=== PATIENT | male | born 1965 | race Caucasian/White ===

== ENCOUNTER 2017-02-18 15:49 | Emergency (ER) | payer SELFPAY ==
[2017-02-18 15:57] VITALS: TEMP 98.3
[2017-02-18] MEDS ORDERED: LIDOCAINE VIS-MYLANTA 30 ML UD PO ONE (16:09)
[2017-02-18] MEDS ORDERED: ASPIRIN TABLET 325 MG TAB PO ONE (16:09)
--- NOTE | 2017-02-18 16:24 | RAD ---
EXAM DESCRIPTION: Chest,1 View CLINICAL HISTORY: 51 years Male, chest pain COMPARISON: None. TECHNIQUE: AP portable chest. FINDINGS: The lungs are clear. There is no infiltrate or effusion. The heart is normal size. IMPRESSION: Normal. Electronically signed by: Tello Caruso MD 02/18/2017 4:23 PM CDT
[2017-02-18] MEDS ORDERED: NITROGLYCERIN 0.4 MG 25 EA TAB SL ONE ×4 (16:32→17:02)
[2017-02-18] MEDS ORDERED: CLOPIDOGREL 75 MG TAB PO ONE (17:04)
[2017-02-18] MEDS ORDERED: ENOXAPARIN SODIUM 100 MG/ML SYG SUBCU ONE (17:06)
--- NOTE | 2017-02-18 17:56 | ED.PDOC ---
History of Present Illness - General Chief Complaint: Chest Pain/MT Stated Complaint: chest tightness,shortness of breath Time Seen by Provider: 02/18/17 16:00 Source: patient Exam Limitations: no limitations - History of Present Illness Initial Comments: the patient is a 51-year-old male presenting to the emergency room secondary to chest discomfort starting 1 to 1-1/2 hours prior to arrival. the patient is not really describing it as chest pain but more simply a squeezing. He feels like no matter how he breathes he cannot get his breath. His oxygen saturations are 94-98% on room air. His lungs are clear. He has not visibly in marketing distress. He has no chest wall discomfort palpation. He has no epigastric discomfort palpation. He has not been having heartburn issues recently. He was not doing anything stressful at the time of onset. He was simply driving around at that time. He does feel dizzy on occasion and does have some tingling to the left side of his jaw and his left shoulder for the last hour. He does have a history of [facility] response according to the patient. He is also a type II diabetic. Timing/Duration: 1 hour Severity: moderate Improving Factors: nothing Worsening Factors: nothing Associated Symptoms: chest pain, shortness of breath Allergies/Adverse Reactions: Allergies NO KNOWN ALLERGY Allergy (Unverified 04/16/15 16:58) Home Medications: Ambulatory Orders Amlodipine Besylate 5 mg PO DAILY 02/18/17 Fluoxetine HCl 20 mg PO DAILY 02/18/17 Glipizide 5 mg PO BID 02/18/17 Hydrochlorothiazide 12.5 mg PO DAILY 02/18/17 Insulin Detemir [Levemir] 15 units SUBCU BID 02/18/17 Lisinopril 40 mg PO DAILY 02/18/17 Metformin HCl 1,000 mg PO BID 02/18/17 Simvastatin 20 mg PO BEDTIME 02/18/17 Review of Systems - Review of Systems Constitutional: States: malaise EENTM: States: no symptoms reported Respiratory: States: short of breath Cardiology: States: chest pain Gastrointestinal/Abdominal: States: no symptoms reported Genitourinary: States: no symptoms reported Musculoskeletal: States: no symptoms reported Skin: States: no symptoms reported Neurological: States: other - dizziness Endocrine: States: no symptoms reported, other - he does report being a little diaphoretic at the onset All other Systems: No Change from Baseline Past Medical History (General) - Patient Medical History Hx Stroke: No Hx Congestive Heart Failure: No Hx Hypertension: Yes Hx Diabetes: Yes Hx MRSA: No - Vaccination History Hx Influenza Vaccination: No Hx Pneumococcal Vaccination: No - Social History Hx Tobacco Use: Yes Family Medical History - Family History Mother Family History: Unknown Living Status: Father Living Status: Still Living Hx Family Hypertension: Yes Hx Cardiac Disease: Yes Hx Family Diabetes: Yes Physical Exam - Physical Exam General Appearance: Alert, Anxious, No apparent distress Eye Exam: bilateral normal Ears, Nose, Throat: hearing grossly normal, normal ENT inspection Neck: non-tender, full range of motion, supple Respiratory: chest non-tender, lungs clear, normal breath sounds, no respiratory distress, no accessory muscle use Cardiovascular/Chest: normal peripheral pulses, regular rate, rhythm, no edema, other - occasional irregular beats Peripheral Pulses: radial,right: 2+, radial,left: 2+, dorsalis pedis,right: 2+, dorsalis pedis,left: 2+ Gastrointestinal/Abdominal: normal bowel sounds, non tender, soft Rectal Exam: heme negative stool Back Exam: normal inspection, no CVA tenderness, no vertebral tenderness Extremity: normal range of motion, non-tender, normal inspection, no pedal edema , no calf tenderness, normal capillary refill Neurologic: no motor/sensory deficits, alert, normal mood/affect, oriented x 3 Skin Exam: normal color Comments: Vital Signs - 24 hr 02/18/17 02/18/17 02/18/17 15:54 17:02 17:20 Temperature 98.3 F Pulse Rate [ 89 98 H 99 H Left Brachial] Respiratory 20 16 20 Rate Blood Pressure 164/120 140/93 128/84 [Left Arm] O2 Sat by Pulse 95 94 L 99 Oximetry Progress - Progress Progress: 02/18/17 17:58 the patient is a 51-year-old male presenting with symptoms that are concerning for unstable angina. He has received a couple of doses of nitroglycerin and his blood pressures have improved some. Symptoms have improved somewhat. He has received aspirin Lovenox and 300 mg of Plavix. The [facility] has been contacted and Dr. Walter has refused transfer due to lack of capacity at the facility. the patient will be transferred to [facility] for further cardiac evaluation. The patient is being made nothing by mouth for possible cardiology intervention in the very near future. - Results/Orders Results/Orders: Laboratory Tests 02/18/17 02/18/17 02/18/17 16:05 16:05 16:05 WBC 10.8 RBC 5.21 Hgb 15.3 Hct 46.2 MCV 88.6 MCH 29.4 MCHC 33.2 RDW 14.3 Plt Count 333 MPV 7.2 L Absolute Neuts (auto) 6.30 Absolute Lymphs (auto) 3.60 H Absolute Monos (auto) 0.70 Absolute Eos (auto) 0.10 Absolute Basos (auto) 0.10 Neutrophils % 58.0 Lymphocytes % 33.2 Monocytes % 6.6 Eosinophils % 1.4 Basophils % 0.8 PT 11.5 INR 1.020 PTT (SP) 31.6 D-Dimer, Quantitative < 200 Sodium 141 Potassium 3.8 Chloride 106 Carbon Dioxide 27 Anion Gap 11.8 L BUN 19 H Creatinine 0.83 BUN/Creatinine Ratio 22.9 H Random Glucose 106 H Serum Osmolality 283.9 Calcium 10.0 Total Bilirubin 0.6 AST 19 ALT 27 Alkaline Phosphatase 64 Creatine Kinase 386 H* CK-MB (CK-2) 5.2 H* CK-MB (CK-2) % 1.35 Troponin I 0.02 B-Natriuretic Peptide 16.2 Serum Total Protein 8.5 H Albumin 4.8 Globulin 3.7 H Albumin/Globulin Ratio 1.3 02/18/17 16:05 WBC RBC Hgb Hct MCV MCH MCHC RDW Plt Count MPV Absolute Neuts (auto) Absolute Lymphs (auto) Absolute Monos (auto) Absolute Eos (auto) Absolute Basos (auto) Neutrophils % Lymphocytes % Monocytes % Eosinophils % Basophils % PT Cancelled INR Cancelled PTT (SP) D-Dimer, Quantitative Sodium Potassium Chloride Carbon Dioxide Anion Gap BUN Creatinine BUN/Creatinine Ratio Random Glucose Serum Osmolality Calcium Total Bilirubin AST ALT Alkaline Phosphatase Creatine Kinase CK-MB (CK-2) CK-MB (CK-2) % Troponin I B-Natriuretic Peptide Serum Total Protein Albumin Globulin Albumin/Globulin Ratio chest x-ray shows clear lung guerra. EKG and repeat EKG shows frequent PVCs. Mild left atrial dilation. Questionable mild LVH. Normal sinus rhythm otherwise. No acute obvious ST segment changes particularly concerning for ischemia. Departure - Departure Clinical Impression: Unstable angina pectoris Disposition: Transfer to Hospital Home Medications: Ambulatory Orders Amlodipine Besylate 5 mg PO DAILY 02/18/17 Fluoxetine HCl 20 mg PO DAILY 02/18/17 Glipizide 5 mg PO BID 02/18/17 Hydrochlorothiazide 12.5 mg PO DAILY 02/18/17 Insulin Detemir [Levemir] 15 units SUBCU BID 02/18/17 Lisinopril 40 mg PO DAILY 02/18/17 Metformin HCl 1,000 mg PO BID 02/18/17 Simvastatin 20 mg PO BEDTIME 02/18/17 Transfer to Outside Facility - Transfer Information Accepting Provider:: dr dali keita Accepting Facility: [facility] Reason for Transfer: required specialist not available
[2017-02-18 18:26] VITALS: BP 142/88; O2SAT 95
== END 2017-02-18 18:26 | disposition short-term general hospital (02) ==
LOC: ER 15:49
DX: I20.0 Unstable angina (principal); I10 Essential (primary) hypertension; E11.9 Type 2 diabetes mellitus without complications; Z79.4 Long term (current) use of insulin; Z79.899 Other long term (current) drug therapy
CPT/HCPCS: 36415; 71010; 80053; 82550; 82553; 83880; 84484; 85025; 85379; 85610; 85730; 93005; J1650

== ENCOUNTER 2018-05-17 07:27 | Emergency (ER) | payer SELFPAY ==
[2018-05-17] MEDS ORDERED: ASPIRIN TABLET 325 MG TAB PO ONE (07:48)
[2018-05-17] MEDS ORDERED: LISINOPRIL 10 MG TAB PO ONE (07:48)
[2018-05-17] MEDS ORDERED: KETOROLAC TROMETHAMINE INJ 30 MG/ML VIAL IM ONE (07:48)
[2018-05-17] MEDS ORDERED: METOPROLOL TARTRATE 50 MG TAB PO ONE (07:48)
[2018-05-17] MEDS ORDERED: HYDROcodone 5MG/APAP 325MG 1 EA TAB PO ONE (07:48)
[2018-05-17] MEDS ORDERED: CYCLOBENZAPRINE HCL 5 MG TAB PO ONE (07:48)
--- NOTE | 2018-05-17 08:20 | RAD ---
EXAM DESCRIPTION: Shoulder,Left 2 or More Views CLINICAL HISTORY: left post shoulder pain 3d COMPARISON: None Available. TECHNIQUE: Two views of the left shoulder. FINDINGS: There is adequate internal and external rotation. There is no fracture or dislocation. Advanced degenerative changes are seen at the left AC joint with inferior projecting osteophyte. No focal bone lesion. IMPRESSION: Negative for fracture or dislocation. Electronically signed by: Smith Kelly MD 05/17/2018 8:19 AM CDT
--- NOTE | 2018-05-17 08:21 | RAD ---
Procedure: XR CHEST 2 VIEWS Exam Date: 05/17/2018 Ordering Provider: Dean Kelly Clinical Indication: left post shoulder pain, htn Comparison: 02/18/2017 Findings: Cardiomediastinal silhouette is unremarkable. No focal lung consolidation. No pleural effusion. No pneumothorax. No acute osseous abnormalities. Impression: 1. No acute abnormalities in the chest. Electronically signed by: Randy Martin MD 05/17/2018 8:19 AM CDT
[2018-05-17 08:38] VITALS: O2SAT 97
[2018-05-17 08:57] VITALS: BP 156/115; TEMP 97.6
--- NOTE | 2018-05-17 08:57 | ED.PDOC ---
History of Present Illness - General Chief Complaint: Back Pain or Injury Time Seen by Provider: 05/17/18 07:38 Source: patient Exam Limitations: no limitations - History of Present Illness Initial Comments: the patient is a 53-year-old male presenting to the emergency room secondary to posterior left shoulder pain that is worse with movement and spasming in nature present for the last 5 days. 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 He does have a cardiac history. His blood pressures are significantly elevated this morning but he has not taken any of his medications at home. He is not having any chest pain or shortness of breath. He is extremely tender to palpation over the left rhomboid muscle. There is obvious muscle spasm there. Inflammation and spasm seems to be really localized to this area. He is neurovascularly intact. No shortness of breath. No syncope or near syncope. No palpitations. Timing/Duration: 1 week Severity: moderate Improving Factors: nothing Worsening Factors: movement Associated Symptoms: denies symptoms Allergies/Adverse Reactions: Allergies NO KNOWN ALLERGY Allergy (Unverified 04/16/15 16:58) Home Medications: Ambulatory Orders Amlodipine Besylate 5 mg PO DAILY 02/18/17 Fluoxetine HCl 20 mg PO DAILY 02/18/17 Glipizide 5 mg PO BID 02/18/17 Hydrochlorothiazide 12.5 mg PO DAILY 02/18/17 Insulin Detemir [Levemir] 15 units SUBCU BID 02/18/17 Lisinopril 40 mg PO DAILY 02/18/17 Metformin HCl 1,000 mg PO BID 02/18/17 Simvastatin 20 mg PO BEDTIME 02/18/17 Mpumicfjfdihd-Cvam-Idqyosvzmh [Fioricet] 1 ea PO Q8H PRN #21 tab 05/17/18 Cyclobenzaprine HCl [Flexeril] 5 mg PO TID PRN #30 tab 05/17/18 predniSONE [Prednisone] 20 mg PO DAILY #3 tab 05/17/18 Review of Systems - Review of Systems Constitutional: States: no symptoms reported EENTM: States: no symptoms reported Respiratory: States: no symptoms reported Cardiology: States: no symptoms reported Gastrointestinal/Abdominal: States: no symptoms reported Genitourinary: States: no symptoms reported Musculoskeletal: States: back pain Skin: States: no symptoms reported Neurological: States: no symptoms reported Endocrine: States: no symptoms reported All other Systems: No Change from Baseline Past Medical History (General) - Patient Medical History Hx Seizures: No Hx Stroke: No Hx Dementia: No Hx Asthma: No Hx of COPD: No Hx Cardiac Disorders: No Hx Congestive Heart Failure: No Hx Pacemaker: No Hx Hypertension: Yes Hx Thyroid Disease: No Hx Diabetes: Yes Hx Gastroesophageal Reflux: No Hx Renal Disease: No Hx Cancer: No Hx of HIV: No Hx Hepatitis C: No Hx MRSA: No - Vaccination History Hx Tetanus, Diphtheria Vaccination: No Hx Influenza Vaccination: No Hx Pneumococcal Vaccination: No Immunizations Up to Date: No - Social History Hx Tobacco Use: Yes Hx Chewing Tobacco Use: No Hx Alcohol Use: No Hx Substance Use: No Hx Substance Use Treatment: No Hx Depression: No Feels Threatened In Home Enviroment: No Feels Threatened In a Relationship: No Hx Physical Abuse: No Hx Emotional Abuse: No Hx Suspected Abuse: No - Female History Patient is a Female of Child Bearing Age (10 -59 yrs old): No Patient : No Family Medical History - Family History Mother Family History: Unknown Living Status: Father Living Status: Still Living Hx Family Hypertension: Yes Hx Cardiac Disease: Yes Hx Family Diabetes: Yes Physical Exam - Physical Exam General Appearance: Alert, Comfortable, No apparent distress Eye Exam: bilateral normal Ears, Nose, Throat: hearing grossly normal, normal ENT inspection, normal pharynx Neck: non-tender, full range of motion, supple Respiratory: lungs clear, normal breath sounds, no respiratory distress, no accessory muscle use Cardiovascular/Chest: normal peripheral pulses, no edema, other - regular rate Peripheral Pulses: radial,right: 2+, radial,left: 2+, dorsalis pedis,right: 2+, dorsalis pedis,left: 2+ Gastrointestinal/Abdominal: non tender, soft Rectal Exam: deferred Back Exam: no vertebral tenderness, other - see history of present illness. No evidence of trauma. No step-offs. No spinal tenderness to palpation. Extremity: non-tender, normal inspection, no pedal edema, no calf tenderness, normal capillary refill Neurologic: surface grinder II-XII nml as tested, alert, normal mood/affect, oriented x 3 Skin Exam: normal color Comments: Vital Signs - 24 hr 05/17/18 05/17/18 05/17/18 07:35 07:42 08:37 Temperature 96.8 F L Pulse Rate [ 96 H 93 H 65 Apical] Respiratory 20 20 Rate Blood Pressure 203/118 168/118 [Left] O2 Sat by Pulse 99 97 Oximetry Progress - Progress Progress: 05/17/18 08:57 patient's 53-year-old male presenting to the emergency room secondary to upper left back pain of approximately 3-5 days' duration. The patient appears to be having rhomboid muscle spasm likely related tp strain. Two-view chest x-ray and left shoulder chest x-ray failed to show any acute pathology. The patient will be written for Flexeril 5 mg by mouth 3 times a day as needed and Fioricet 1 tablet every 8 hours as needed. he will also be written for 3 days only about 20 mg of prednisone daily. He does need to monitor his blood sugars closely. He does need to stretch out the rhomboid muscle and he has been instructed on how to do this. Topical heat may also prove beneficial. It is important to realize that this problemcan be ongoing for 3-4 weeks. He does need to be reevaluated by his primary care doctor in about a week to start exercises for strengthening of the rhomboid muscle to prevent further injury in the future. He does need to take his blood pressure medications as his blood pressures do get significantly elevated when he is off of them. His blood pressure has dropped down significantly since arrival after being given doses of his blood pressure medications. ER warnings were given. - Results/Orders Results/Orders: EKG showed normal sinus rhythm with left atrial dilation and poor R-wave progression in anterior leads. This is consistent with his EKG from 1 year ago. QT interval is within normal limits. Normal axis otherwise. - EKG/XRAY/CT CT Ordered: No CT Interpretation Call Back: No Departure - Departure Clinical Impression: Hypertension, uncontrolled Rhomboid muscle strain Qualifiers: Encounter type: initial encounter Qualified Code(s): S29.012A - Strain of muscle and tendon of back wall of thorax, initial encounter Disposition: Discharge to Home or Self Care Condition: Fair Departure Forms: ED Discharge - Pt. Copy, Patient Portal Self Enrollment Instructions: DI for Back Strain or Sprain Diet: diabetic diet Activity: increase activity as tolerated Referrals: SHARYN VALE [Primary Care Provider] - 1-2 Weeks Prescriptions: Vfnfrixpwyesa-Yvtj-Wpxtpaucpj [Fioricet] 1 ea PO Q8H PRN #21 tab PRN Reason: Pain Cyclobenzaprine HCl [Flexeril] 5 mg PO TID PRN #30 tab PRN Reason: Muscle Spasms predniSONE [Prednisone] 20 mg PO DAILY #3 tab Home Medications: Ambulatory Orders Amlodipine Besylate 5 mg PO DAILY 02/18/17 Fluoxetine HCl 20 mg PO DAILY 02/18/17 Glipizide 5 mg PO BID 02/18/17 Hydrochlorothiazide 12.5 mg PO DAILY 02/18/17 Insulin Detemir [Levemir] 15 units SUBCU BID 02/18/17 Lisinopril 40 mg PO DAILY 02/18/17 Metformin HCl 1,000 mg PO BID 02/18/17 Simvastatin 20 mg PO BEDTIME 02/18/17 Lpujubgfzbnvy-Qbyj-Htflynnneu [Fioricet] 1 ea PO Q8H PRN #21 tab 05/17/18 Cyclobenzaprine HCl [Flexeril] 5 mg PO TID PRN #30 tab 05/17/18 predniSONE [Prednisone] 20 mg PO DAILY #3 tab 05/17/18 Additional Instructions: patient's 53-year-old male presenting to the emergency room secondary to upper left back pain of approximately 3-5 days' duration. The patient appears to be having rhomboid muscle spasm likely related tp strain. Two-view chest x-ray and left shoulder chest x-ray failed to show any acute pathology. The patient will be written for Flexeril 5 mg by mouth 3 times a day as needed and Fioricet 1 tablet every 8 hours as needed. he will also be written for 3 days only about 20 mg of prednisone daily. He does need to monitor his blood sugars closely. He does need to stretch out the rhomboid muscle and he has been instructed on how to do this. Topical heat may also prove beneficial. It is important to realize that this problemcan be ongoing for 3-4 weeks. He does need to be reevaluated by his primary care doctor in about a week to start exercises for strengthening of the rhomboid muscle to prevent further injury in the future. He does need to take his blood pressure medications as his blood pressures do get significantly elevated when he is off of them. His blood pressure has dropped down significantly since arrival after being given doses of his blood pressure medications. ER warnings were given.
== END 2018-05-17 09:14 | disposition home or self-care (01) ==
LOC: ER 07:27
DX: S29.012A Strain of muscle and tendon of back wall of thorax, initial encounter (principal); I10 Essential (primary) hypertension; E11.9 Type 2 diabetes mellitus without complications; Z79.84 Long term (current) use of oral hypoglycemic drugs; Z79.899 Other long term (current) drug therapy; Z87.891 Personal history of nicotine dependence; X58.XXXA Exposure to other specified factors, initial encounter; Y92.9 Unspecified place or not applicable
CPT/HCPCS: 71046; 73030; 93005; J1885